=== PATIENT | male | born 2000 | race Two or more races ===

== ENCOUNTER → 2024-08-26 | Outpatient (CLI) | payer MEDICAID, SELFPAY ==
--- NOTE | 2024-08-26 10:27 | XR_ITS ---
Examination: Knee, right , 3 views Technique: Knee AP, lateral, oblique 3 views Date and time of exam: August 26, 2024 1042 hrs. Indications: Injury to the knee 3 years ago with knee pain. Findings: No fracture or dislocation No significant joint narrowing No foreign body Impression: No fracture or significant arthritic change
== END | disposition home or self-care (01) ==
LOC: CDIM 10:06
PROVIDERS: PCP Nurse Practitioner Family; Referring Provider Nurse Practitioner Family; Visit Provider Nurse Practitioner Family
DX: M25.561 Pain in right knee (principal)
CPT/HCPCS: 73562